=== PATIENT | female | born 1985 | race Caucasian/White ===

== ENCOUNTER 2022-03-31 10:52 | Outpatient (REF) | payer BC, SELFPAY ==
[2022-03-31 11:08] LABS: MANUAL DIFF FLAG NO
[2022-03-31 11:20] LABS: Basophils Absolute Auto 0.1 X10*3/uL (0.0-0.2); Basophils Percent Auto 0.7 % (0-2); Eosinophils Absolute Auto 0.3 X10*3/uL (0.0-0.4); Eosinophils Percent Auto 2.3 % (0-4); Hematocrit 41.3 % (37.0-47.0); Hemoglobin 13.7 g/dl (12.0-16.0); Imm Gran Abs Auto 0.05 X10*3/uL (0.00-0.03); Imm Gran Pct Auto 0.5 % (0.0-0.4); Lymphocytes Absolute Auto 1.5 X10*3/uL (1.2-4.9); Lymphocytes Percent Auto 13.7 % (20-40); Mean Corpuscular HGB Conc 33.2 g/dl (31.0-35.0); Mean Corpuscular Hemoglobin 29.3 pg (27.0-33.0); Mean Corpuscular Volume 88.4 fL (80.0-98.0); Mean Platelet Volume 10.4 fL (9.4-12.3); Monocytes Absolute Auto 0.6 X10*3/uL (0.1-1.2); Monocytes Percent Auto 5.8 % (2-11); Neutrophils Absolute Auto 8.2 x10*3/uL (2.0-8.3); Platelet Count 370 X10*3/uL (160-400); Red Blood Count 4.67 X10*6/uL (4.20-5.50); Red Cell Distribution Width 13.2 % (11.0-16.0); White Blood Count 10.7 X10*3/uL (4.8-10.8)
[2022-03-31 11:41] LABS: Cholesterol 141 mg/dL; HDL Cholesterol 35 mg/dL; LDL Cholesterol Calculated 97 mg/dl; Triglycerides 45 mg/dL
== END 2022-03-31 10:53 | disposition home or self-care (01) ==
LOC: HO.LAB 10:52
PROVIDERS: PCP Nurse Practitioner Family; Visit Provider Nurse Practitioner Family
DX: G43.909 Migraine, unspecified, not intractable, without status migrainosus (principal); E78.00 Pure hypercholesterolemia, unspecified; I10 Essential (primary) hypertension; Z76.89 Persons encountering health services in other specified circumstances
CPT/HCPCS: 36415; 80061; 84443; 85025

== ENCOUNTER 2023-03-19 08:16 | Outpatient (REF) | payer BC, SELFPAY ==
[2023-03-19 08:25] LABS: MANUAL DIFF FLAG NO
[2023-03-19 08:44] LABS: Basophils Absolute Auto 0.1 X10*3/uL (0.0-0.2); Basophils Percent Auto 0.6 % (0-2); Eosinophils Absolute Auto 0.4 X10*3/uL (0.0-0.4); Eosinophils Percent Auto 2.3 % (0-4); Hematocrit 43.4 % (37.0-47.0); Hemoglobin 14.3 g/dl (12.0-16.0); Imm Gran Abs Auto 0.08 X10*3/uL (0.00-0.03); Imm Gran Pct Auto 0.5 % (0.0-0.4); Lymphocytes Absolute Auto 2.3 X10*3/uL (1.2-4.9); Lymphocytes Percent Auto 14.9 % (20-40); Mean Corpuscular HGB Conc 32.9 g/dl (31.0-35.0); Mean Corpuscular Hemoglobin 29.2 pg (27.0-33.0); Mean Corpuscular Volume 88.8 fL (80.0-98.0); Mean Platelet Volume 10.4 fL (9.4-12.3); Monocytes Absolute Auto 0.9 X10*3/uL (0.1-1.2); Monocytes Percent Auto 5.5 % (2-11); Neutrophils Absolute Auto 11.9 x10*3/uL (2.0-8.3); Neutrophils Percent Auto 76.2 % (45-73); Platelet Count 399 X10*3/uL (160-400); Red Blood Count 4.89 X10*6/uL (4.20-5.50); Red Cell Distribution Width 13.2 % (11.0-16.0); White Blood Count 15.6 X10*3/uL (4.8-10.8)
[2023-03-19 09:11] LABS: Alanine Aminotransferase 26 U/L (0-31); Alkaline Phosphatase 98 U/L (39-117); Anion Gap 12 (12-20); Aspartate Amino Transferase 15 U/L (5-31); Blood Urea Nitrogen 8 mg/dL (9-16); Calcium 9.6 mg/dL (8.4-10.2); Carbon Dioxide 27 mmol/L (22-29); Chloride 105 mmol/L (96-108); Cholesterol 158 mg/dL; Estimated Glomerular Filt Rate > 60; Glucose Random 91 mg/dL (60-115); HDL Cholesterol 43 mg/dL; LDL Cholesterol Calculated 99 mg/dl; Potassium 4.1 mmol/L (3.3-5.1); Sodium 140 mmol/L (135-145); Total Protein 6.8 g/dL (6.5-8.0); Triglycerides 80 mg/dL
[2023-03-19 09:28] LABS: TSH reflex Free T4 3.65 uIU/mL (0.32-4.0)
== END 2023-03-19 08:17 | disposition home or self-care (01) ==
LOC: HO.LAB 08:16
PROVIDERS: PCP Nurse Practitioner Family; Visit Provider Nurse Practitioner Family
DX: Z13.0 Encounter for screening for diseases of the blood and blood-forming organs and certain disorders involving the immune mechanism (principal); Z13.29 Encounter for screening for other suspected endocrine disorder; Z13.220 Encounter for screening for lipoid disorders
CPT/HCPCS: 36415; 80053; 80061; 84443; 85025

== ENCOUNTER 2023-04-23 15:01 | Outpatient (REF) | payer BC, SELFPAY ==
[2023-04-24 16:21] LABS: CT PCR NOT DETECTED (Not Detect.); NG PCR NOT DETECTED (Not Detect.)
[2023-04-25 10:04] LABS: BV Int Neg Control Negative (Negative); BV Int Pos Control Positive (Positive)
[2023-05-01 22:13] LABS: HPV mRNA E6/E7 rflx Not Detected (Not Detected)
== END 2023-04-23 15:02 | disposition home or self-care (01) ==
LOC: HO.LNP 15:01
PROVIDERS: Obstetrics & Gynecology; PCP Nurse Practitioner Family; Visit Provider Advanced Practice Midwife
DX: Z01.419 Encounter for gynecological examination (general) (routine) without abnormal findings (principal); Z80.3 Family history of malignant neoplasm of breast; Z97.5 Presence of (intrauterine) contraceptive device; Z20.2 Contact with and (suspected) exposure to infections with a predominantly sexual mode of transmission
CPT/HCPCS: 0353U; 87480; 87510; 87624; 87660; 88142

== ENCOUNTER → 2023-04-27 09:09 | Outpatient (BNVA) | payer BC, SELFPAY | PROVIDERS: PCP Nurse Practitioner Family; Visit Provider Advanced Practice Midwife | DX: Z30.433 Encounter for removal and reinsertion of intrauterine contraceptive device (principal); B37.31 Acute candidiasis of vulva and vagina; Z32.00 Encounter for pregnancy test, result unknown; Z79.899 Other long term (current) drug therapy | CPT/HCPCS: 58300; 58301; 81025; J7298 ==

== ENCOUNTER 2023-07-13 12:52 | Outpatient (REF) | payer BC, SELFPAY ==
[2023-07-13 13:17] LABS: MANUAL DIFF FLAG NO
[2023-07-13 13:55] LABS: Basophils Absolute Auto 0.1 X10*3/uL (0.0-0.2); Basophils Percent Auto 0.9 % (0-2); Eosinophils Absolute Auto 0.7 X10*3/uL (0.0-0.4); Eosinophils Percent Auto 5.8 % (0-4); Hemoglobin 14.4 g/dl (12.0-16.0); Imm Gran Abs Auto 0.08 X10*3/uL (0.00-0.03); Imm Gran Pct Auto 0.6 % (0.0-0.4); Lymphocytes Absolute Auto 2.1 X10*3/uL (1.2-4.9); Lymphocytes Percent Auto 16.3 % (20-40); Mean Corpuscular HGB Conc 33.5 g/dl (31.0-35.0); Mean Corpuscular Hemoglobin 29.4 pg (27.0-33.0); Mean Corpuscular Volume 87.9 fL (80.0-98.0); Mean Platelet Volume 10.5 fL (9.4-12.3); Monocytes Absolute Auto 0.6 X10*3/uL (0.1-1.2); Neutrophils Absolute Auto 9.2 x10*3/uL (2.0-8.3); Neutrophils Percent Auto 71.4 % (45-73); Platelet Count 409 X10*3/uL (160-400); Red Blood Count 4.89 X10*6/uL (4.20-5.50); Red Cell Distribution Width 12.9 % (11.0-16.0); White Blood Count 12.8 X10*3/uL (4.8-10.8)
[2023-07-13 14:21] LABS: Estimated Average Glucose 94 mg/dL; Hemoglobin A1c % 4.9 % (<6.0)
[2023-07-13 14:55] LABS: Alanine Aminotransferase 18 U/L (0-31); Albumin Level 4.1 g/dL (3.5-5.0); Alkaline Phosphatase 97 U/L (39-117); Anion Gap 16 (12-20); Aspartate Amino Transferase 17 U/L (5-31); Bilirubin Total 0.4 mg/dL (0.0-1.0); Blood Urea Nitrogen 8 mg/dL (9-16); Calcium 10.1 mg/dL (8.4-10.2); Carbon Dioxide 22 mmol/L (22-29); Chloride 104 mmol/L (96-108); Cholesterol 155 mg/dL (<200); Estimated Glomerular Filt Rate > 60; Glucose Random 87 mg/dL (60-115); HDL Cholesterol 41 mg/dL (>40); LDL Cholesterol Calculated 98 mg/dL (<100); Potassium 4.3 mmol/L (3.3-5.1); Sodium 138 mmol/L (135-145); Thyroid Stimulating Hormone 2.12 uIU/mL (0.32-4.0); Total Protein 7.3 g/dL (6.5-8.0); Triglycerides 82 mg/dL (<150)
[2023-07-13 14:57] LABS: UPreg QC Valid YES; Urine Pregnancy NEGATIVE (NEGATIVE)
[2023-07-13 15:07] LABS: Amphetamine Screen Urine Not Detected (Not Detect); Barbiturates, Urine Not Detected (Not Detect); Benzodiazepines Screen Urine Not Detected (Not Detect); Cannabinoid Screen Urine Not Detected (Not Detect); Cocaine Screen Urine Not Detected (Not Detect); Fentanyl, urine Not Detected (Not Detect); Opiate Screen Urine Not Detected (Not Detect); Phencyclidine Screen Urine Not Detected (Not Detect)
[2023-07-13 15:09] LABS: Folate 7.8 ng/mL (> or = 4.0); Vitamin B12 267 pg/mL (200-900)
[2023-07-13 16:13] LABS: Benzodiazepines Screen Urine Not Detected (Not Detect)
== END 2023-07-13 12:53 | disposition home or self-care (01) ==
LOC: HO.LAB 12:52
PROVIDERS: PCP Nurse Practitioner Family; Visit Provider Registered Nurse
DX: F31.81 Bipolar II disorder (principal)
CPT/HCPCS: 80053; 80061; 80307; 81025; 82607; 82746; 83036; 84443; 85025

== ENCOUNTER 2024-03-05 11:48 | Outpatient (AMB) | payer BC, SELFPAY ==
[2024-03-05 12:06] VITALS: BP 128/84; PULSE 97; RESP 12; O2SAT 98; BMI 36.3
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
== END 2024-03-05 12:51 | disposition home or self-care (01) ==
PROVIDERS: PCP Nurse Practitioner Family; Visit Provider Nurse Practitioner Family
DX: Z00.00 Encounter for general adult medical examination without abnormal findings (principal); J45.20 Mild intermittent asthma, uncomplicated; F31.81 Bipolar II disorder; J30.2 Other seasonal allergic rhinitis; G43.009 Migraine without aura, not intractable, without status migrainosus; R53.82 Chronic fatigue, unspecified; E66.09 Other obesity due to excess calories; Z68.36 Body mass index [BMI] 36.0-36.9, adult
CPT/HCPCS: 99395

== ENCOUNTER 2024-03-05 12:39 | Outpatient (REF) | payer BC, SELFPAY ==
[2024-03-05 14:51] LABS: Hematocrit 43.6 % (37.0-47.0); Hemoglobin 14.7 g/dl (12.0-16.0); Mean Corpuscular HGB Conc 33.7 g/dl (31.0-35.0); Mean Corpuscular Hemoglobin 28.9 pg (27.0-33.0); Mean Corpuscular Volume 85.8 fL (80.0-98.0); Mean Platelet Volume 10.7 fL (9.4-12.3); Platelet Count 432 X10*3/uL (160-400); Red Blood Count 5.08 X10*6/uL (4.20-5.50); Red Cell Distribution Width 13.3 % (11.0-16.0); White Blood Count 11.2 X10*3/uL (4.8-10.8)
[2024-03-05 15:40] LABS: Estimated Average Glucose 103 mg/dL; Hemoglobin A1c % 5.2 % (<6.0)
[2024-03-05 17:14] LABS: Alanine Aminotransferase 18 U/L (0-31); Albumin Level 4.2 g/dL (3.5-5.0); Alkaline Phosphatase 100 U/L (39-117); Anion Gap 9 (12-20); Aspartate Amino Transferase 13 U/L (5-31); Bilirubin Total 0.4 mg/dL (0.0-1.0); Blood Urea Nitrogen 8 mg/dL (9-16); Carbon Dioxide 27 mmol/L (22-29); Chloride 106 mmol/L (96-108); Cholesterol 130 mg/dL (<200); Estimated Glomerular Filt Rate > 60; Glucose Fasting 86 mg/dL (60-99); HDL Cholesterol 35 mg/dL (>40); Iron 97 mcg/dL (30-160); LDL Cholesterol Calculated 82 mg/dL (<100); Percent Iron Saturation 34 % (15-50); Potassium 4.3 mmol/L (3.3-5.1); Sodium 138 mmol/L (135-145); Total Iron Binding Capacity 287 mcg/dL (228-428); Total Protein 7.6 g/dL (6.5-8.0); Triglycerides 68 mg/dL (<150); Unsaturated Iron Binding 190 ug/dL
[2024-03-05 17:15] LABS: TSH reflex Free T4 1.95 uIU/mL (0.32-4.0)
[2024-03-05 17:18] LABS: Creatinine Urine 38.05 mg/dL; Microalbumin Urine < 5.0 mg/L
[2024-03-05 17:28] LABS: Folate 6.8 ng/mL (> or = 4.0); Vitamin B12 268 pg/mL (200-900)
[2024-03-11 17:39] LABS: VITAMIN D (1,25 OH) D3 43 pg/mL; Vit D (1,25-Dihydroxy) Total 43 pg/mL (18-72); Vitamin D (1,25 OH) D2 <8 pg/mL
== END 2024-03-05 12:40 | disposition home or self-care (01) ==
LOC: HO.WFDLDS 12:39
PROVIDERS: Visit Provider Nurse Practitioner Family
DX: Z00.00 Encounter for general adult medical examination without abnormal findings (principal); Z20.2 Contact with and (suspected) exposure to infections with a predominantly sexual mode of transmission
CPT/HCPCS: 36415; 80053; 80061; 82043; 82570; 82607; 82652; 82746; 83036; 83540; 84443; 85027

== ENCOUNTER → 2024-04-16 10:59 | Outpatient (REF) | payer BC, SELFPAY | LOC: HO.SL 10:59 | PROVIDERS: Visit Provider Nurse Practitioner Family | DX: R06.83 Snoring (principal); G47.10 Hypersomnia, unspecified | CPT/HCPCS: 95806 ==

== ENCOUNTER → 2024-04-16 11:07 | Outpatient (BNV) | payer BC, SELFPAY | PROVIDERS: Visit Provider Internal Medicine | DX: G47.33 Obstructive sleep apnea (adult) (pediatric) (principal) | CPT/HCPCS: 95806 ==

== ENCOUNTER 2024-11-13 11:50 | Outpatient (AMB) | payer BC, SELFPAY ==
--- NOTE | 2024-11-13 13:37 | MHC.OFFWIV ---
Intake Vital Signs 11/13/24 13:39 Weight 247 lb BP 140/100 H Blood Pressure Location Lt brachial Position Sitting Pulse 97 Pulse Source Pulse Oximeter Temp 98.3 F Temp Source Oral Pulse Oximetry (%) 97 Oxygen Delivery Method Room Air Intake Visit Reasons: EP strep? Intake Note: Patient here for sore throat, headache, body ache, fevers which started on Sunday. Patient Tobacco Use Status: Never used Tobacco Allergies cyclobenzaprine [From Flexeril] Adverse Reaction (Intermediate, Verified 03/05/24 12:28) Rash Do you need a note to return to daycare/school/sports/work: No HPI HPI Comments History of Present Illness Details History - The patient is a 39-year-old female presenting with a suspicion of Streptococcal Pharyngitis x 3 days . - She reports a sore throat with visible exudates, describing symptoms that began after traveling from [place] during the . - The patient identifies a possible source of contagion from a recently recovered individual or exposure in transit. - Night sweats accompany her symptoms; she denies significant daytime fevers. - She experiences accompanying headaches, fatigue, and body aches but denies ear pain or sinus tenderness. - She confirms no known allergies to antibiotics. Physical Exam General: Cooperative, healthy appearing, comfortable and no acute distress Orientation/consciousness: Patient oriented x3 Limitations: No limitations Head: Normal to inspection Ears: Hearing grossly normal bilaterally, external ears normal and TM's normal bilaterally Nose: Normal external nose present, Normal nares present and No nasal discharge present Face and sinus: Normal facial exam and Yes sinuses nontender Mouth: Normal oral and palatal mucosa present and moist mucous membranes Throat: Yes tonsils normal, Yes uvula midline. Posterior oropharynx erythema with exudates noted Eyes: Appearance normal, both eyes and all related structures Neck: Normal visual inspection Respiratory: Normal respiratory effort, able to speak in complete sentences, Actively coughing, no respiratory distress, not tachypneic, no tripod positioning and no use of accessory muscles Skin: No rashes or lesions noted Neuro: Patient oriented x3 Extremities: Normal to inspection and Yes no clubbing, cyanosis or edema PFSH Surgical History History of surgery Family History Mother HTN (hypertension) Breast cancer Fibromyalgia Father HTN (hypertension) Afib Other Mental health disorder Social History (Updated 03/05/24 @ 12:16 by Queenie Bey CMA) Household Members: None Housing: Condominium 75 years or older and lives alone: No Alcohol intake: current Alcohol intake frequency: holidays/special occasions only Patient Tobacco Use Status: Never used Tobacco e-Cigarette/Vaping Use: Never Used Second Hand Smoke Exposure: No service: No Current occupational status: employed 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- [email or web address] Current occupational exposures/hazards: No Cognitive needs: No Hearing needs: No Vision needs: Yes (glasses) Female Reproductive History Menstrual Age of Menarche: 12 Review of Systems Const All systems reviewed & are unremarkable except as noted in HPI and below Physical Exam Vital Signs: Last Vital Signs Temp 98.3 F 11/13/24 13:39 Pulse 97 11/13/24 13:39 BP 140/100 H 11/13/24 13:39 Pulse Ox 97 11/13/24 13:39 Oxygen Delivery Method Room Air 11/13/24 13:39 Results AMB Rapid Strep AMB Rapid Strep Negative Last Edit by JADIEL Gonzalez on 11/13/24 14:12 Results Reviewed Results Reviewed: Laboratory Last Values Strep Scn Rapid Clinic Negative 11/13/24 14:11 Assessment & Plan Assessment & Plan (1) Strep pharyngitis: Code(s): J02.0 - Streptococcal pharyngitis Plan: - Rapid strep is negative however Centor criteria 2, 11-17% probability of Strep, will treat with abx. - The patient is diagnosed with Streptococcal Pharyngitis and appropriate antibiotic therapy has been started. A prescription was sent electronically to [facility] in [place]. The patient was instructed on infection control practices due to the contagious nature of her condition and advised on home remedies for symptomatic relief. With no known antibiotic allergies, the patient can commence treatment promptly. No work note was requested, and instructions were given on monitoring the resolution of symptoms to gauge the reduction of contagiousness. Patient was informed and verbally consented to the use of an ambient scribe for clinic note documentation during this visit Orders: Orders AMB Rapid Strep Screen Today Z13.9 - Encounter for screening, unspecified Medications: New amoxicillin 500 mg PO Q12H 20 tabs 0RF Coding Level of Care Code Est Pt Level 3 (14222) Diagnoses Strep pharyngitis J02.0
[2024-11-13 13:39] VITALS: BP 140/100; PULSE 97; TEMP 36.8; O2SAT 97
== END 2024-11-13 14:19 | disposition home or self-care (01) ==
PROVIDERS: PCP Nurse Practitioner Family; Visit Provider Physician Assistant
DX: Z13.9 Encounter for screening, unspecified (principal); J02.0 Streptococcal pharyngitis

== ENCOUNTER → 2024-11-13 11:50 | Outpatient (BNVA) | payer BC, SELFPAY | PROVIDERS: PCP Nurse Practitioner Family; Visit Provider Physician Assistant | DX: J02.0 Streptococcal pharyngitis (principal) | CPT/HCPCS: 87880 ==

== ENCOUNTER 2025-03-09 07:57 | Outpatient (AMB) | payer BC, SELFPAY ==
--- NOTE | 2025-03-09 08:02 | A.OFFPC_ITS ---
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 Repeat cholesterol screening should take place: Every 5 years for women with normal cholesterol levels More often if changes occur in lifestyle (including weight gain and diet) More often if you have diabetes, heart disease, kidney problems, or certain other conditions DIABETES SCREENING You should be screened for diabetes starting at age 35 and then repeated every 3 years if you have no risk factors for diabetes. Screening may need to start earlier and be repeated more often if you have other risk factors for diabetes, such as: You have a first degree relative with diabetes. You are overweight or have obesity. You have high blood pressure, prediabetes, or a history of heart disease. Screening for diabetes should be done if you are planning to become and you are overweight and have other risk factors such as high blood pressure. DENTAL EXAM Go to the dentist once or twice every year for an exam and cleaning. Your dentist will evaluate if you need more frequent visits. EYE EXAM Have an eye exam every 5 to 10 years before age 40. If you have vision problems, have an eye exam every 2 years or more often if recommended by your provider. You should have an eye exam that includes an examination of your retina (back of your eye) at least every year if you have diabetes. IMMUNIZATIONS Commonly needed vaccines include: Flu shot: get one every year. COVID-19 vaccine: ask your provider what is best for you. Tetanus-diphtheria and acellular pertussis (Tdap) vaccine: have one at or after age 19 as one of your tetanus-diphtheria vaccines if you did not receive it as an adolescent. Tetanus-diphtheria: have a booster (or Tdap) every 10 years. Varicella vaccine: receive 2 doses if you never had chickenpox or the varicella vaccine. Hepatitis B vaccine: receive 2, 3, or 4 doses, depending on your exact circumstances. Measles, mumps, and rubella (MMR) vaccine: receive 1 to 2 doses if you are not already immune to MMR. Your provider can tell you if you are immune. Ask your provider about the human papillomavirus (HPV) vaccine if: You have not received the HPV vaccine in the past You have not completed the full vaccine series (you should catch up on this shot) Ask your provider if you should receive other immunizations if you have certain health problems that increase your risk for some diseases such as pneumonia. INFECTIOUS DISEASE SCREENING Women who are sexually active should be screened for chlamydia and gonorrhea up until age 25. Women 25 years and older should be screened for chlamydia and gonorrhea if at high risk. Screening for hepatitis C: All adults ages 18 to 79 should get a one-time test for hepatitis C. people should be screened at every . Screening for human immunodeficiency virus (HIV): All people ages 15 to 65 should get a one-time test for HIV. Depending on your lifestyle and medical history, you may also need to be screened for infections such as syphilis and HIV, as well as other infections. PHYSICAL EXAM All adults should visit their provider from time to time, even if they are healthy. The purpose of these visits is to: Screen for disease Assess your risk of future medical problems Encourage a healthy lifestyle Update your vaccinations and other preventive care services Maintain a relationship with a provider in case of an illness Your height, weight, and BMI should be checked at every exam. During your exam, your provider may ask you about: Depression and anxiety Diet and exercise Alcohol and tobacco use Safety issues, such as using seat belts, smoke detectors, and intimate partner violence Your medicines and risk for interactions SKIN SELF-EXAM Your provider may check your skin for signs of skin cancer, especially if you're at high risk, such as if you: Have had skin cancer before Have close relatives with skin cancer Have a weakened immune system OTHER SCREENING Talk with your provider about colon cancer screening if you have a strong family history of colon cancer or polyps, or if you have had inflammatory bowel disease or polyps yourself. Routine bone density screening of women under 40 is not recommended.
--- OUTSIDE RECORDS SUMMARY | 2025-03-09 08:04 | XMS_ITS | Continuity of Care Document ---
Author Name Virgen Farrell Address [address] [place] [id number] Organization Unknown Address [address] [place] [id number] Medications No known medications Problems No known problems
[2025-03-09 08:09] VITALS: BP 136/80; PULSE 99; RESP 13; TEMP 36.4; O2SAT 97; BMI 36.2
== END 2025-03-09 08:55 | disposition home or self-care (01) ==
LOC: HO.HMCFM 07:58
PROVIDERS: PCP Nurse Practitioner Family; Visit Provider Nurse Practitioner Family
DX: Z00.01 Encounter for general adult medical examination with abnormal findings (principal); E66.09 Other obesity due to excess calories; F31.81 Bipolar II disorder; R25.1 Tremor, unspecified; Z68.36 Body mass index [BMI] 36.0-36.9, adult; Z23 Encounter for immunization; L30.9 Dermatitis, unspecified; Z80.3 Family history of malignant neoplasm of breast; J45.20 Mild intermittent asthma, uncomplicated; G43.009 Migraine without aura, not intractable, without status migrainosus; Z97.5 Presence of (intrauterine) contraceptive device; J30.2 Other seasonal allergic rhinitis; G47.33 Obstructive sleep apnea (adult) (pediatric)

== ENCOUNTER 2025-03-09 07:57 | Outpatient (REF) | payer BC, SELFPAY ==
[2025-03-09 11:29] LABS: Estimated Average Glucose 100 mg/dL; Hemoglobin A1C 124.5737 umol/L; Hemoglobin A1c % 5.1 % (<6.0); Total Hemoglobin (HGBA1C) 3922.5887 umol/L
[2025-03-09 11:46] LABS: Alanine Aminotransferase 27 U/L (0-31); Albumin Level 4.2 g/dL (3.5-5.0); Alkaline Phosphatase 117 U/L (39-117); Anion Gap 12 (12-20); Aspartate Amino Transferase 27 U/L (5-31); Bilirubin Total 0.2 mg/dL (0.0-1.0); Blood Urea Nitrogen 11 mg/dL (9-16); Calcium 9.4 mg/dL (8.4-10.2); Carbon Dioxide 26 mmol/L (22-29); Chloride 106 mmol/L (96-108); Cholesterol 141 mg/dL (<200); Estimated Glomerular Filt Rate > 60; Glucose Random 93 mg/dL (60-115); HDL Cholesterol 42 mg/dL (>40); LDL Cholesterol Calculated 85 mg/dL (<100); Potassium 4.2 mmol/L (3.3-5.1); Sodium 140 mmol/L (135-145); Total Protein 7.5 g/dL (6.5-8.0); Triglycerides 71 mg/dL (<150)
[2025-03-09 12:03] LABS: Folate 5.4 ng/mL (> or = 4.0); Vitamin B12 283 pg/mL (200-900)
[2025-03-09 12:13] LABS: Creatinine Urine 129.69 mg/dL; Microalbum/Creatinine Ratio Ur 6.1 ug/mg cr (<30)
[2025-03-09 12:23] LABS: Hematocrit 44.1 % (37.0-47.0); Hemoglobin 14.7 g/dl (12.0-16.0); Mean Corpuscular HGB Conc 33.3 g/dl (31.0-35.0); Mean Corpuscular Hemoglobin 28.9 pg (27.0-33.0); Mean Corpuscular Volume 86.6 fL (80.0-98.0); Mean Platelet Volume 10.6 fL (9.4-12.3); Platelet Count 435 X10*3/uL (160-400); Red Blood Count 5.09 X10*6/uL (4.20-5.50); Red Cell Distribution Width 13.7 % (11.0-16.0); White Blood Count 12.2 X10*3/uL (4.8-10.8)
[2025-03-09 12:27] LABS: Ferritin 138 ng/mL (10-122); TSH reflex Free T4 2.73 uIU/mL (0.32-4.0)
== END 2025-03-09 07:58 | disposition home or self-care (01) ==
LOC: HO.WFDLDS 07:57
PROVIDERS: PCP Nurse Practitioner Family; Visit Provider Nurse Practitioner Family
DX: Z00.01 Encounter for general adult medical examination with abnormal findings (principal); Z23 Encounter for immunization; E66.09 Other obesity due to excess calories; Z68.36 Body mass index [BMI] 36.0-36.9, adult; F31.81 Bipolar II disorder; L30.9 Dermatitis, unspecified; J45.20 Mild intermittent asthma, uncomplicated; G43.009 Migraine without aura, not intractable, without status migrainosus; J30.2 Other seasonal allergic rhinitis; G47.33 Obstructive sleep apnea (adult) (pediatric); R25.1 Tremor, unspecified; Z80.3 Family history of malignant neoplasm of breast; Z97.5 Presence of (intrauterine) contraceptive device; Z13.1 Encounter for screening for diabetes mellitus
CPT/HCPCS: 36415; 80053; 80061; 82043; 82570; 82607; 82728; 82746; 83036; 84443; 85027; 90471; 90656; 96127

== ENCOUNTER 2025-03-16 15:19 | Outpatient (AMB) | payer BC, SELFPAY ==
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
== END 2025-03-16 16:14 | disposition home or self-care (01) ==
LOC: HO.HMCFM 15:19
PROVIDERS: PCP Nurse Practitioner Family; Visit Provider Nurse Practitioner Family
DX: R79.89 Other specified abnormal findings of blood chemistry (principal); D75.839 Thrombocytosis, unspecified; D72.829 Elevated white blood cell count, unspecified

== ENCOUNTER → 2025-03-16 15:19 | Outpatient (BNVA) | payer BC, SELFPAY | PROVIDERS: PCP Nurse Practitioner Family; Visit Provider Nurse Practitioner Family | DX: R79.89 Other specified abnormal findings of blood chemistry (principal); D75.839 Thrombocytosis, unspecified; D72.829 Elevated white blood cell count, unspecified | CPT/HCPCS: 98966 ==

== ENCOUNTER 2025-04-16 15:40 | Outpatient (REF) | payer BC, SELFPAY ==
[2025-04-16 17:23] LABS: Immature Retic Fraction 9.7 % (3.0-15.9); Retic HGB Equivalent 33.1 pg (30.0-35.0); Reticulocyte Percent 2.7 % (0.5-1.8); Reticulocytes Absolute 0.129 X10*6/uL (0.026-0.095)
[2025-04-16 18:03] LABS: Erythrocyte Sedimentation Rate 6 MM/HR (0-20); Iron 43 mcg/dL (30-160); Percent Iron Saturation 15 % (15-50); Total Iron Binding Capacity 280 mcg/dL (228-428); Unsaturated Iron Binding 237 ug/dL
[2025-04-16 18:19] LABS: Ferritin 134 ng/mL (10-122)
[2025-04-17 12:13] LABS: CRP High Sensitivity 11.7 mg/L
== END 2025-04-16 15:41 | disposition home or self-care (01) ==
LOC: HO.LAB 15:40
PROVIDERS: PCP Nurse Practitioner Family; Visit Provider Nurse Practitioner Family
DX: D75.839 Thrombocytosis, unspecified (principal); D72.829 Elevated white blood cell count, unspecified; R79.89 Other specified abnormal findings of blood chemistry
CPT/HCPCS: 82728; 83540; 85045; 85652; 86141

== ENCOUNTER 2025-04-23 08:24 | Outpatient (AMB) | payer BC, SELFPAY ==
--- NOTE | 2025-04-23 08:39 | MHC.AMNUTRGE ---
VS Expanded 04/23/25 08:40 05/05/25 08:51 Height 5 ft 8 in 5 ft 8 in Weight 232 lb 2.348 oz 232 lb BMI 35.3 35.3 Intake Visit Reasons: Obesity Allergies cyclobenzaprine (From Flexeril) Adverse Reaction (Intermediate, Verified 04/29/25 13:36) Rash wellbutrin Adverse Reaction (Mild, Uncoded 04/29/25 13:36) tremors Medication List - Last Reconciled 05/05/[address], LDN albuterol sulfate 90 mcg/actuation 2 puffs inhalation Q6H PRN amitriptyline 10 mg PO BEDTIME cariprazine 3 mg PO DAILY cholecalciferol (vitamin D3) 25 mcg PO DAILY epinephrine (EpiPen 2-Suleiman) 0.3 mg (0.3 mL) IM Q10M PRN hydrocortisone 2.5% appl topical ketoconazole 2% 1 appl topical ketoconazole 2% 1 appl topical 3XW lamotrigine 150 mg PO DAILY levonorgestrel (Mirena) intrauterine triamcinolone acetonide 0.5% 1 appl topical TID valacyclovir 2,000 mg (2 x 1 gram) PO Q12H Nutrition Presentation Details: Pt presents for MNT for obesity typical food intake noon: Protein coffee - protein shake (collagen powder , milk , 2 syrup water premier protein shake dinner: meal kits from [employer] (ground pork/beef or meatless meal with vegges/pasta/cheese), water physical activity: started walking 1 mile etoh/smoking: denies food frequency fruits: 1-2x/d vegetables : 2 /d dairy: 1-2 /d fish: not including Beverages: water , flavored water, tea, milk 36-42 oz/d fluids taking vit D- 25mc BS Monitoring Most Recent Diabetes Results: Microalb/Creat Ratio, (<30) 6.1 ug/mg cr 03/09/25 Cholesterol, (<200) 141 mg/dL 03/09/25 HDL Cholesterol, (>40) 42 mg/dL 03/09/25 Triglycerides, (<150) 71 mg/dL 03/09/25 Creatinine, (0.5-1.4) 0.74 mg/dL 03/09/25 BUN, (9-16) 11 mg/dL 03/09/25 Sodium, (135-145) 140 mmol/L 03/09/25 Potassium, (3.3-5.1) 4.2 mmol/L 03/09/25 Chloride, (96-108) 106 mmol/L 03/09/25 Carbon Dioxide, (22-29) 26 mmol/L 03/09/25 Calcium, (8.4-10.2) 9.4 mg/dL 03/09/25 AST, (5-31) 27 U/L 03/09/25 ALT, (0-31) 27 U/L 03/09/25 Total Protein, (6.5-8.0) 7.5 g/dL 03/09/25 Albumin, (3.5-5.0) 4.2 g/dL 03/09/25 [id number].Jeor Equation Height: 5 ft 8 in Weight: 232 lb Resting Metabolic Rate: 1777.90 Calculated Activity Level: Sedentary Calories Needed to Maintain Weight: 2133.48 Diagnosis Nutrition problem #1: overweight/obesity As related to (etiology) #1: diagnosis As evidenced by (sign/symptom) #1: high BMI (35 (05/06)) Monitoring/Goals Nutrition problem monitoring: level of knowledge/skill and weight Nutrition goal/outcome: wt loss 5lbs in 2 months Outcome progress: verbalized understanding [facility] Surgical History History of surgery Family History Mother HTN (hypertension) Breast cancer Fibromyalgia Father HTN (hypertension) Afib Other Mental health disorder Social History (Updated 03/05/24 @ 12:16 by Queenie Bey CMA) Household Members: None Housing: Condominium Alcohol intake: current Alcohol intake frequency: holidays/special occasions only Patient Tobacco Use Status: Never used Tobacco e-Cigarette/Vaping Use: Never Used Second Hand Smoke Exposure: No service: No Current occupational status: employed 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- [employer] Current occupational exposures/hazards: No Cognitive needs: No Hearing needs: No Vision needs: Yes (glasses) Female Reproductive History Menstrual Age of Menarche: 12 Assessment & Plan Assessment & Plan (1) Class 2 obesity with body mass index (BMI) of 36.0 to 36.9 in adult: Comment: BMI 35.3 (05/06) Code(s): E66.9 - Obesity, unspecified; Z68.36 - Body mass index [BMI] 36.0-36.9, adult Category: Medical Qualifiers: Obesity type: due to excess calories Serious obesity comorbidity presence: without serious comorbidity Qualified Code(s): E66.09 - Other obesity due to excess calories; Z68.36 - Body mass index [BMI] 36.0-36.9, adult Plan: Wt: 105 Kg ( 05/06 ) Est kcal needs as per MSJ: 2100 (40% carb, 30% protein/fat) Est fluid needs as per 25-30 ml/d: 3200 Est prot per day as per 1 g/kg bw: 100 Recommend fiber intake : 8-10 g per day and gradually increase to 25-28 g per day for women and 35-38 g for men or as tolerated Recommend sodium intake per day : less than 2300 mg Educated patient on: ( R = reviewed V = verbalizes understanding N/R = needs review N/A = not applicable Food sources of carbohydrate, adequate serving sizes and its role in various health conditions: R Differences between complex carbohydrates a simple carbohydrates, role of fiber in diet: R Lean protein sources of foods: R Differences between types of fats and role in diet (mono on saturated fat fatty acids, saturated fatty acids, trans fats): R V N/R Food sources of sodium in salt and healthy modifications for heart health in kidney health: R V R/V Vitamins and minerals: R V N/R Healthy plate method concept: R Physical activity: Benefits a precaution: R V Patient Instructions: Continue working on reducing on added sugars Continue working on meal planning, 3 meals/day following healthy plate method , goal 60 g carb per meal or less and 0-20 g carb as snack (2 /day if needed) keep hydrated Coding Level of Care Code Nutr Indiv Intake (59397) Diagnoses Class 2 obesity due to excess calories without serious comorbidity with body mass index (BMI) of 36.0 to 36.9 in adult E66.09; Z68.36 Obesity type: due to excess calories Serious obesity comorbidity presence: without serious comorbidity Time Spent (min) 30
[2025-04-23 08:40] VITALS: BMI 35.3
[2025-05-05 08:51] VITALS: BMI 35.3
== END 2025-04-23 09:14 | disposition home or self-care (01) ==
LOC: HO.ENCR 08:25
PROVIDERS: PCP Nurse Practitioner Family; Visit Provider Dietitian, Registered
DX: E66.09 Other obesity due to excess calories (principal); Z68.36 Body mass index [BMI] 36.0-36.9, adult

== ENCOUNTER → 2025-04-23 08:24 | Outpatient (BNVA) | payer BC, SELFPAY | PROVIDERS: PCP Nurse Practitioner Family; Visit Provider Dietitian, Registered | DX: Z71.3 Dietary counseling and surveillance (principal); E66.9 Obesity, unspecified; Z68.36 Body mass index [BMI] 36.0-36.9, adult | CPT/HCPCS: 97802 ==

== ENCOUNTER 2025-04-29 13:31 | Outpatient (AMB) | payer BC, SELFPAY ==
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
== END 2025-04-29 14:24 | disposition home or self-care (01) ==
LOC: HO.HMCFM 13:31
PROVIDERS: PCP Nurse Practitioner Family; Visit Provider Nurse Practitioner Family
DX: M25.511 Pain in right shoulder (principal); R79.82 Elevated C-reactive protein (CRP); R79.89 Other specified abnormal findings of blood chemistry; D75.839 Thrombocytosis, unspecified; D72.829 Elevated white blood cell count, unspecified

== ENCOUNTER → 2025-04-29 13:31 | Outpatient (BNVA) | payer BC, SELFPAY | PROVIDERS: PCP Nurse Practitioner Family; Visit Provider Nurse Practitioner Family | DX: F31.81 Bipolar II disorder (principal); M25.511 Pain in right shoulder; J30.9 Allergic rhinitis, unspecified; J45.20 Mild intermittent asthma, uncomplicated; G43.909 Migraine, unspecified, not intractable, without status migrainosus; F41.1 Generalized anxiety disorder; G47.33 Obstructive sleep apnea (adult) (pediatric); R79.82 Elevated C-reactive protein (CRP); R79.89 Other specified abnormal findings of blood chemistry; D75.839 Thrombocytosis, unspecified; D75.829 Heparin-induced thrombocytopenia, unspecified; Z79.899 Other long term (current) drug therapy; Z99.89 Dependence on other enabling machines and devices | CPT/HCPCS: 98967 ==

== ENCOUNTER 2025-04-30 13:47 | Outpatient (REF) | payer BC, SELFPAY ==
--- NOTE | ~2025-04-30 | XR_ITS ---
EXAMINATION: XR SHOULDER, RIGHT CLINICAL INFORMATION: M25.511 - Pain in right shoulder COMPARISON: None available. TECHNIQUE: AP external rotation, Grashey, scapular Y, and axillary views of the right shoulder. FINDINGS: No acute cortical disruption or malalignment. No lytic or blastic lesions. No metallic or radiopaque foreign body. XR/XR shoulder RT min 2V IMPRESSION: Normal x-ray. Electronically signed by: Herb Marion MD 04/30/2025 02:16 PM EDT
== END 2025-04-30 13:48 | disposition home or self-care (01) ==
LOC: HO.XRAY 13:47
PROVIDERS: PCP Nurse Practitioner Family; Visit Provider Nurse Practitioner Family
DX: M25.511 Pain in right shoulder (principal)
CPT/HCPCS: 73030

== ENCOUNTER → 2025-04-30 13:50 | Outpatient (BNV) | payer BC, SELFPAY | PROVIDERS: PCP Nurse Practitioner Family; Visit Provider Radiology Diagnostic Radiology | DX: M25.511 Pain in right shoulder (principal) | CPT/HCPCS: 73030 ==

== ENCOUNTER 2025-06-10 10:55 | Outpatient (AMB) | payer BC, SELFPAY ==
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
== END 2025-06-10 12:19 | disposition home or self-care (01) ==
LOC: HO.HMCFM 10:55
PROVIDERS: PCP Nurse Practitioner Family; Visit Provider Nurse Practitioner Family
DX: M25.511 Pain in right shoulder (principal); G89.29 Other chronic pain; D72.829 Elevated white blood cell count, unspecified; R79.89 Other specified abnormal findings of blood chemistry; D75.839 Thrombocytosis, unspecified; G47.33 Obstructive sleep apnea (adult) (pediatric); R79.82 Elevated C-reactive protein (CRP)

== ENCOUNTER → 2025-06-10 10:55 | Outpatient (BNVA) | payer BC, SELFPAY | PROVIDERS: PCP Nurse Practitioner Family; Visit Provider Nurse Practitioner Family | DX: F31.81 Bipolar II disorder (principal); J30.2 Other seasonal allergic rhinitis; J45.20 Mild intermittent asthma, uncomplicated; G43.909 Migraine, unspecified, not intractable, without status migrainosus; F41.1 Generalized anxiety disorder; G47.33 Obstructive sleep apnea (adult) (pediatric); M25.511 Pain in right shoulder; G89.29 Other chronic pain; D72.829 Elevated white blood cell count, unspecified; R79.89 Other specified abnormal findings of blood chemistry; D75.839 Thrombocytosis, unspecified; R79.82 Elevated C-reactive protein (CRP); Z99.89 Dependence on other enabling machines and devices | CPT/HCPCS: 98966 ==